=== PATIENT | male | born 1945 | race Caucasian/White ===

== ENCOUNTER 2019-04-17 10:13 | Inpatient (IN) | payer MEDICARE, OTHER ==
[~2019-04-17] VITALS: Ht 177.8 cm; Wt 73.0 kg
[~2019-04-17 10:13] MED LIST: AGGR PO; Atorvastatin; CHOL100044 PO; FELODIPINE; Lisinopril; OCD PO; OXYB5TAB11 PO; Omeprazole; fish oil; flomax
[2019-04-17] MEDS ORDERED: SODIUM CHLORIDE 0.9% 1000ML BAG (SEPSIS BOLUS) IV ONE (11:00)
[2019-04-17 11:37] LABS: HEMATOCRIT. 39.7 % (42.0-52.0); HEMOGLOBIN. 13.3 g/dL (14.0-18.0); MEAN CORPUSCULAR HEMOGLOBIN 31.4 pg (28.0-32.0); MEAN CORPUSCULAR VOLUME 94.2 fL (80.0-94.0); MEAN PLATELET VOLUME 8.3 fl (7.4-10.4); PLATELET 262 x1000/uL (130-400); RED BLOOD CELL COUNT 4.22 mill/uL (4.7-6.1); RED CELL DISTRIBUTION WIDTH 14.4 % (11.6-14.6)
[2019-04-17 11:44] LABS: PROTHROMBIN TIME 10.6 sec (9.6-11.0)
[2019-04-17 11:45] LABS: CHLORIDE 110 mEq/L (98-107)
[2019-04-17 11:52] LABS: ETHANOL BLOOD < 10 mg/dL
[2019-04-17 12:36] LABS: CLARITY URINE CLEAR (CLEAR); COLOR URINE YELLOW (YELLOW); KETONES URINE 1+ (NEGATIVE); LEUKOCYTE ESTERASE URINE NEGATIVE (NEGATIVE); NITRITE URINE NEGATIVE (NEGATIVE); OCCULT BLOOD URINE NEGATIVE (NEGATIVE); PH URINE 5.5 (4.5-8.0); PROTEIN URINE TRACE (NEGATIVE); SPECIFIC GRAVITY URINE 1.024 (1.005-1.030); UROBILINOGEN URINE 0.2 E.U./dL (0.2-1.0)
[2019-04-17 13:07] LABS: *BARBITURATES SCREEN URINE NEGATIVE (NEGATIVE)
[2019-04-17 13:08] LABS: *AMPHETAMINES SCREEN URINE NEGATIVE (NEGATIVE); *BENZODIAZEPINES SCREEN URINE NEGATIVE (NEGATIVE); *COCAINE SCREEN URINE NEGATIVE (NEGATIVE)
[2019-04-17 13:09] LABS: CANNABINOID URINE SCREEN NEGATIVE (NEGATIVE); OPIATES URINE SCREEN NEGATIVE (NEGATIVE); PHENCYCLIDINE URINE SCREEN NEGATIVE (NEGATIVE)
[2019-04-17 13:11] LABS: METHADONE URINE SCREEN NEGATIVE (NEGATIVE)
[2019-04-17 13:46] LABS: PLATELET ESTIMATE NORMAL
[2019-04-17 17:48] VITALS: BP 101/74
[2019-04-17] MEDS ORDERED: MAGNESIUM/ALUMINUM HYDROXIDE/SIMETHICONE 30ML UDC PO PRN (19:45)
[2019-04-17] MEDS ORDERED: LORAZEPAM 0.5MG TABLET PO PRN (19:45)
[2019-04-17] MEDS ORDERED: DOCUSATE SODIUM 100MG CAPSULE PO PRN (19:45)
[2019-04-17] MEDS ORDERED: IPRATROPIUM/ALBUTEROL 0.5-3(2.5)MG/3ML NEB NEB PRN (19:45)
[2019-04-17] MEDS ORDERED: HYDROCODONE/ACETAMINOPHEN 5/325MG TABLET PO PRN (19:45)
[2019-04-17] MEDS ORDERED: ONDANSETRON HCL 4MG/2ML INJ IV PRN (19:45)
[2019-04-17] MEDS ORDERED: ACETAMINOPHEN 325MG TABLET PO PRN (19:45)
[2019-04-17] MEDS ORDERED: CLONIDINE 0.1MG TABLET PO PRN (19:45)
[2019-04-17] MEDS ORDERED: GUAIFENESIN 200MG/10ML SUGAR FREE UDC PO PRN (19:45)
[2019-04-17] MEDS ORDERED: DIPHENHYDRAMINE 50MG/ML VIAL IV PRN (19:45)
[2019-04-17 20:00] VITALS: BP 155/87
[2019-04-17] MEDS: ENOXAPARIN 40MG/0.4ML SYR SUBCUT SCH (20:53)
[2019-04-17] MEDS ORDERED: ZOLPIDEM TARTRATE 5MG TABLET PO PRN (21:00)
[2019-04-17 22:00] VITALS: BP 148/80
[2019-04-18] VITALS (8 sets, daily range): BP systolic 125–157; BP diastolic 78–94
[2019-04-18 07:59] LABS: BASOPHILS % 0.9 % (0.0-2.0); EOSINOPHILS % 5.2 % (0.0-5.0); HEMATOCRIT. 36.9 % (42.0-52.0); HEMOGLOBIN. 12.4 g/dL (14.0-18.0); LYMPHOCYTES % 24.7 % (20.0-50.0); MEAN CORPUSCULAR HEMOGLOBIN 31.4 pg (28.0-32.0); MEAN CORPUSCULAR VOLUME 93.8 fL (80.0-94.0); MONOCYTES % 7.8 % (2.0-8.0); NEUTROPHILS % 61.4 % (40.0-76.0); PLATELET 241 x1000/uL (130-400); RED BLOOD CELL COUNT 3.93 mill/uL (4.7-6.1); RED CELL DISTRIBUTION WIDTH 14.5 % (11.6-14.6)
[2019-04-18 08:03] LABS: CHLORIDE 112 mEq/L (98-107)
[2019-04-18 08:12] LABS: PHOSPHORUS 2.6 mg/dL (2.5-4.9)
[2019-04-18 08:13] LABS: LDL CHOLESTEROL 67 mg/dL (5-100)
[2019-04-18 08:15] LABS: HDL CHOLESTEROL 56 mg/dL (40-59)
[2019-04-18] MEDS: ENOXAPARIN 40MG/0.4ML SYR SUBCUT SCH (20:36)
[2019-04-19] VITALS: BP 126/84
[2019-04-19 04:00] VITALS: BP 129/97
[2019-04-19 07:45] LABS: BASOPHILS % 0.6 % (0.0-2.0); EOSINOPHILS % 4.4 % (0.0-5.0); HEMATOCRIT. 39.8 % (42.0-52.0); HEMOGLOBIN. 13.4 g/dL (14.0-18.0); LYMPHOCYTES % 19.5 % (20.0-50.0); MEAN CORPUSCULAR HEMOGLOBIN 31.7 pg (28.0-32.0); MEAN CORPUSCULAR VOLUME 94.2 fL (80.0-94.0); MEAN PLATELET VOLUME 8.9 fl (7.4-10.4); MONOCYTES % 8.5 % (2.0-8.0); PLATELET 259 x1000/uL (130-400); RED BLOOD CELL COUNT 4.23 mill/uL (4.7-6.1); RED CELL DISTRIBUTION WIDTH 14.9 % (11.6-14.6)
[2019-04-19 08:00] VITALS: BP 123/85
[2019-04-19 08:20] LABS: CHLORIDE 110 mEq/L (98-107)
[2019-04-19 08:31] LABS: VITAMIN B12 SERUM 546 pg/mL (211-911)
[2019-04-19 12:00] VITALS: BP 153/93
[2019-04-19 16:00] VITALS: BP 140/86
[2019-04-19 20:00] VITALS: BP 151/97
[2019-04-19] MEDS: ENOXAPARIN 40MG/0.4ML SYR SUBCUT SCH (20:12)
[2019-04-20] VITALS (8 sets, daily range): BP systolic 115–166; BP diastolic 61–96
[2019-04-20 07:12] LABS: HIV SCREEN 4G Non Reactive (Non Reactive)
== END 2019-04-20 18:45 | disposition home or self-care (01) | DRG 948 ==
LOC: ER 10:13 → EDBEDREQ 12:35 → 5WST 12:52 → EDBEDREQSVC 13:02 → EDBEDREQTM 13:02 → EDBEDREQ 13:02 → ENRESERV 15:26
PROVIDERS: ADMIT Family Medicine Adult Medicine; ATTEND Family Medicine Adult Medicine
PROC: 0HBRXZZ Excision of Toe Nail, External Approach (ICD-10-PCS; principal; 2019-04-18)
PROC: 0HBRXZZ Excision of Toe Nail, External Approach (ICD-10-PCS; 2019-04-18)
PROC: 0HBRXZZ Excision of Toe Nail, External Approach (ICD-10-PCS; 2019-04-18)
PROC: 0HBRXZZ Excision of Toe Nail, External Approach (ICD-10-PCS; 2019-04-18)
PROC: 0HBRXZZ Excision of Toe Nail, External Approach (ICD-10-PCS; 2019-04-18)
PROC: 0HBRXZZ Excision of Toe Nail, External Approach (ICD-10-PCS; 2019-04-18)
PROC: 0HBRXZZ Excision of Toe Nail, External Approach (ICD-10-PCS; 2019-04-18)
PROC: 0HBRXZZ Excision of Toe Nail, External Approach (ICD-10-PCS; 2019-04-18)
PROC: 0HBRXZZ Excision of Toe Nail, External Approach (ICD-10-PCS; 2019-04-18)
PROC: 0HBRXZZ Excision of Toe Nail, External Approach (ICD-10-PCS; 2019-04-18)
DX: R53.1 Weakness (principal); E78.5 Hyperlipidemia, unspecified; I10 Essential (primary) hypertension; B35.1 Tinea unguium; N40.0 Benign prostatic hyperplasia without lower urinary tract symptoms; Z86.73 Personal history of transient ischemic attack (TIA), and cerebral infarction without residual deficits; Z79.899 Other long term (current) drug therapy
CPT/HCPCS: 36415; 70551; 71045; 80048; 80061; 80305; 80320; 81003; 82607; 83605; 83735; 83880; 84100; 84145; 84443; 84484; 86850; 86900; 87389; 93005; 93970; 95816; 97112; 97116; 97162; 97165; 99285; J1650; J7030; G0480